=== PATIENT | male | born 1995 | race American Indian/Alaskan Native ===

== ENCOUNTER 2020-06-11 15:15 | Emergency (ER) | payer SELFPAY ==
[2020-06-11 15:29] VITALS: BP 124/72
--- NOTE | 2020-06-11 17:02 | Emergency Department Report ---
Chief Complaint: Headache Stated Complaint: HEADACHE Time Seen by Provider: 06/11/20 16:57 - HPI History of Present Illness: 25 y/o male comes in for allergies. Having nasal congestion and headache. denies any fever.chill no N/V. - Exam Vital Signs: Vital Signs 06/11/20 15:28 Temperature 98.3 F Pulse Rate 85 Respiratory 20 Rate Blood Pressure 124/72 O2 Sat by Pulse 98 Oximetry Physical Exam: AxO times 3 NAD non toxic Lungs clear Heart: RRR ambulatory without difficulties. MSE screening note: Focused history and physical exam performed. Due to findings the following was ordered: 25 y/o male comes in for allergies. Having nasal congestion and headache. denies any fever.chill no N/V. Try taking over the counter Zyrtec and flonase plenty of fluids. ED Disposition for MSE Clinical Impression: Allergies, Allergic rhinitis Disposition: Z MED SCREENING EXAM-LEFT Is pt being admited?: No Does the pt Need Aspirin: No Condition: Stable Instructions: Cetirizine/Pseudoephedrine (By mouth), Allergic Rhinitis (ED) Additional Instructions: try taking over the counter Zyrtec and flonase plenty of fluids. Referrals: [facility] [Provider Group] - 3-5 Days Forms: Work/School Release Form(ED)
== END 2020-06-11 17:46 | disposition left against medical advice (07) ==
LOC: ED 15:15
DX: R09.81 Nasal congestion (principal); Z53.21 Procedure and treatment not carried out due to patient leaving prior to being seen by health care provider